=== PATIENT | female | born 1995 | race Caucasian/White ===

== ENCOUNTER 2023-08-30 15:45 | Outpatient (AMB) | payer OTHER, SELFPAY ==
--- NOTE | 2023-08-30 15:55 | MHC.PC.OV ---
Vital Signs 08/30/23 16:04 Height 5 ft 2 in Weight 120 lb 2 oz BMI 22.0 BP 108/68 Blood Pressure Location Lt brachial Position Sitting Respiration 16 Pulse 85 Pulse Source Pulse Oximeter Temp 98.4 F Temp Source Oral Pulse Oximetry (%) 98 Oxygen Delivery Method Room Air Intake Visit Reasons: Well check up Intake Note: patient here for new patient visit / CPE K 9 Police Officer Required: No Is last menstrual period known: Yes Last menstrual period: 07/30/23 Post menopausal: No Patient : No Allergies No Known Allergies Allergy (Verified 08/30/23 16:00) Medication List - Last Reconciled 09/01/23 by Nitza Urias MD alprazolam 0.5 mg PO .every 4 hours PRN sertraline 25 mg PO DAILY 90 days Tobacco use date assessed: 08/30/23 Dental Screening Dental Screen Date: 08/30/23 Did you have a dental visit in the last 12 months?: Yes Did you have a dental problem in the last 6 months where you did not have access to dental care?: No HPI HPI Comments History of Present Illness Details The patient is a 27 year old female with a past medical history of anxiety presenting to [facility] and for physical exam Her only concern today is overwhelming anxiety. She worries about everything. Stops her from doing, planning things. Causing her to be less effective. Family history of anxiety. Sister is on zoloft with good effect. She would like to try medication. She does suffer from panic attacks though infrequent. She has mild depressive symptoms mostly related to anxiety Reports dental UTD She will call furnace firer to schedule an appointment ROS CONSTITUTIONAL: Denies weight loss, fever and chills. HEENT: Denies changes in vision and hearing. RESPIRATORY: Denies SOB and cough. CV: Denies palpitations and CP GI: Denies abdominal pain, nausea, vomiting and diarrhea. : Denies dysuria and urinary frequency. MSK: Denies new myalgia and joint pain. SKIN: Denies rash and pruritus. NEUROLOGICAL: Denies headache PSYCHIATRIC: see HPI PHYSICAL EXAM: GENERAL: Alert and oriented x 3. NAD EYES: EOMI. Anicteric. HENT: Moist mucous membranes. No scleral icterus. No cervical lymphadenopathy. LUNGS: Clear to auscultation bilaterally. CARDIOVASCULAR: Regular rate and rhythm. No murmur. No JVD. ABDOMEN: Soft, non-tender +bs EXTREMITIES: No edema. Non-tender. SKIN: No rashes or lesions. Warm. NEUROLOGIC: No focal neurological deficits. CN II-XII grossly intact PSYCHIATRIC: Cooperative. 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 1. Little interest or pleasure in doing things: nearly every day 2. Feeling down, depressed, or hopeless: nearly every day 3. Trouble falling or staying asleep, or sleeping too much: more than half the days 4. Feeling tired or having little energy: nearly every day 5. Poor appetite or overeating: nearly every day 6. Feeling bad about yourself - or that you are a failure or have let yourself or your family down: nearly every day 7. Trouble concentrating on things, such as reading the newspaper or watching television: nearly every day 8. Moving or speaking so slowly that other people could have noticed. Or the opposite - being so fidgety or restless that you have been moving around a lot more than usual: more than half the days 9. Thoughts that you would be better off or of hurting yourself in some way: several days Total score: 23 Depression Screening Interpretation: Positive Depression Screening Follow-up: New Medication prescribed Depression Screening Done: Yes 36731 - PHQ-9 Billing: Yes Source: Developed by Drs. Adrien Davis, Jade De Jesus, Luke Richey and colleagues, with an educational vaishali from [employer]. Thrive Questionnaire Date Thrive assessed: 08/30/23 I am a: Patient What is your living situation today?: I have a steady place to live Within the past 12 months, did the food you bought not last and you didn't have the money to get more?: Never true Within the past 12 months, did you worry whether your food would run out before you got money to buy more?: Never true Do you have trouble paying for medicines?: No Do you have trouble getting transportation to medical appointments?: No Do you have trouble paying your heating and electricity bill?: No Do you have trouble taking care of your child, family member or friend?: No Do you have trouble with day-to-day activities such as bathing, preparing meals, shopping, managing finances, etc.?: Yes Are you currently unemployed and looking for a job?: No Are you interested in more education?: Yes Please select the resources that you would like help with: Education Currently or been in a relationship where the following occur: no concerns reported THRIVE Score: 0 AUDIT C Alcohol Use Questionnaire (AUDIT-C) 1. How often do you have a drink containing alcohol?: Monthly or less 2. How many drinks containing alcohol do you have on a typical day when you are drinking?: 1 or 2 3. How often do you have six or more drinks on one occasion?: Monthly Total Score: 3 GARETT-7 AMB Questionnaire GARETT-7 Date GARETT - 7 assessed: 08/30/23 Feeling nervous, anxious, or on edge: 3 = Nearly every day Not being able to stop or control worryin = Nearly every day Worrying too much about different things: 3 = Nearly every day Trouble relaxin = Nearly every day Being so restless that it is hard to sit still: 3 = Nearly every day Becoming easily annoyed or irritable: 3 = Nearly every day Feeling afraid as if something awful might happen: 3 = Nearly every day Total GARETT-7 score (0-4 normal; 5-9 mild; 10-14 moderate; 15-21 severe): 21 Source: Developed by Drs. Adrien Davis, Jade De Jesus, Luke Richey and colleagues, with an educational vaishali from [employer]. GARETT-7 Assessment Billing GARETT-7 Assessment Tool: GARETT-7 Assessment 70290 Physical exam (Primary Care) Vital Signs: Last Vital Signs Temp 98.4 F 08/30/23 16:04 Pulse 85 08/30/23 16:04 Resp 16 08/30/23 16:04 BP 108/68 08/30/23 16:04 Pulse Ox 98 08/30/23 16:04 Oxygen Delivery Method Room Air 08/30/23 16:04 BMI result Body Mass Index 22.0 Tobacco/Smoking Status: Tobacco use Status Tobacco use date assessed 08/30/23 08/30/23 16:03 Patient Tobacco Use Status Never used Tobacco 08/30/23 16:03 e-Cigarette/Vaping Use Never Used 08/30/23 16:03 PHQ-9: PHQ-9 Score PHQ-9: Total score 23 09/01/23 14:49 Depression Screening Interpretation: Positive Depression Screening Follow-up: New Medication prescribed Thrive Assessment: Date of Thrive Assessment Date Thrive assessed 08/30/23 08/30/23 16:16 Currently or been in a relationship where the following occur: no concerns reported Assessment and Plan Assessment & Plan (1) Physical exam: Comment: Preventive measures discussed with patient Code(s): Z00.00 - Encounter for general adult medical examination without abnormal findings (2) Anxiety: Comment: Discussed options for treatment including pharmacologic, therapy She would like to try an SSRI Side effect profile discussed. 4-6 weeks for benefit. Return then for follow up. Xanax for flying and panic attack. Sparing Code(s): F41.9 - Anxiety disorder, unspecified Orders: Orders Comprehensive Met. Panel 08/30/23 F41.9 - Anxiety disorder, unspecified, Z00.00 - Encounter for general adult medical examination without abnormal findings, Z13.0 - Encounter for screening for diseases of the blood and blood-forming organs and certain disorders involving the immune mechanism, Z13.220 - Encounter for screening for lipoid disorders, Z13.228 - Encounter for screening for other metabolic disorders Lipid Panel 08/30/23 F41.9 - Anxiety disorder, unspecified, Z00.00 - Encounter for general adult medical examination without abnormal findings, Z13.0 - Encounter for screening for diseases of the blood and blood-forming organs and certain disorders involving the immune mechanism, Z13.220 - Encounter for screening for lipoid disorders, Z13.228 - Encounter for screening for other metabolic disorders TSH reflex Free T4 08/30/23 F41.9 - Anxiety disorder, unspecified, Z00.00 - Encounter for general adult medical examination without abnormal findings, Z13.0 - Encounter for screening for diseases of the blood and blood-forming organs and certain disorders involving the immune mechanism, Z13.220 - Encounter for screening for lipoid disorders, Z13.228 - Encounter for screening for other metabolic disorders Complete Blood Count Auto Diff 08/30/23 F41.9 - Anxiety disorder, unspecified, Z00.00 - Encounter for general adult medical examination without abnormal findings, Z13.0 - Encounter for screening for diseases of the blood and blood-forming organs and certain disorders involving the immune mechanism, Z13.220 - Encounter for screening for lipoid disorders, Z13.228 - Encounter for screening for other metabolic disorders Medications: New sertraline Take 1/2 tab oral once daily for 1 week then increase to 1 tab oral daily 25 mg PO DAILY 90 tabs 0RF 90 days alprazolam 0.5 mg PO .every 4 hours PRN 20 tabs 0RF sleep Coding Level of Care Code New Pt Prev Care 18-39yr(67462 Diagnoses Physical exam Z00.00 Anxiety F41.9 Additional Codes GARETT-7 Assessment Billing - GARETT-7 Assessment Tool: GARETT-7 Assessment 42164 ([id number])
[2023-08-30 16:04] VITALS: BP 108/68; PULSE 85; RESP 16; TEMP 36.9; O2SAT 98; BMI 22.0
== END 2023-08-30 17:09 | disposition home or self-care (01) ==
PROVIDERS: PCP Internal Medicine; Visit Provider Internal Medicine
DX: Z00.00 Encounter for general adult medical examination without abnormal findings (principal); F41.9 Anxiety disorder, unspecified
CPT/HCPCS: 96127; 99385

== ENCOUNTER 2023-10-07 15:32 | Outpatient (AMB) | payer OTHER, SELFPAY ==
[2023-10-07 15:41] VITALS: BP 100/60; PULSE 63; RESP 12; O2SAT 99; BMI 22.3
--- NOTE | 2023-10-07 15:41 | A.OFFPC_ITS ---
Vital Signs 10/07/23 15:41 Height 5 ft 2 in Weight 122 lb BMI 22.3 BP 100/60 Blood Pressure Location Rt brachial Position Sitting Respiration 12 Pulse 63 Pulse Source Pulse Oximeter Pulse Oximetry (%) 99 Oxygen Delivery Method Room Air Intake Visit Reasons: f/up meds Intake Note: Patient is here for a medication follow up Cable Mechanic Required: No Accompanied by: Self / Same As Patient Allergies No Known Allergies Allergy (Verified 10/07/23 15:47) Tobacco use date assessed: 08/30/23 Dental Screening Dental Screen Date: 08/30/23 HPI HPI Comments History of Present Illness Details The patient is a 27 year old female with a past medical history of anxiety presenting for follow up She was seen ~4 weeks ago-Her only concern today is overwhelming anxiety. She worries about everything. Stops her from doing, planning things. Causing her to be less effective. Family history of anxiety. Sister is on zoloft with good effect. She would like to try medication. She does suffer from panic attacks though infrequent. She has mild depressive symptoms mostly related to anxiety She was started on 25mg of sertraline. She denies adverse side effects. She does not think the medication has decreased her anxiety significantly. ROS see HPI PHYSICAL EXAM: GENERAL: Alert and oriented x 3. NAD PSYCHIATRIC: Cooperative. 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 Adrien Davis, Jade De Jesus, Luke Richey and colleagues, with an educational vaishali from [employer] Physical exam (Primary Care) Vital Signs: Last Vital Signs Pulse 63 10/07/23 15:41 Resp 12 10/07/23 15:41 BP 100/60 10/07/23 15:41 Pulse Ox 99 10/07/23 15:41 Oxygen Delivery Method Room Air 10/07/23 15:41 BMI result Body Mass Index 22.3 Tobacco/Smoking Status: Tobacco use Status Tobacco use date assessed 08/30/23 10/07/23 15:48 Patient Tobacco Use Status Never used Tobacco 10/07/23 15:48 e-Cigarette/Vaping Use Never Used 10/07/23 15:48 Thrive Assessment: Date of Thrive Assessment Date Thrive assessed 08/30/23 10/07/23 15:48 Assessment and Plan Assessment & Plan (1) Anxiety: Code(s): F41.9 - Anxiety disorder, unspecified Plan: Tolerating SSRI zoloft 25mg daily without side effect. Not reaping any benefit however in terms of lowering anxiety. Will increase to 50mg daily. If no imrovement will trial different differently medication Medications: New sertraline 50 mg PO DAILY 90 tabs 3RF Discontinued sertraline Take 1/2 tab oral once daily for 1 week then increase to 1 tab oral daily Discontinued Reason: Doctor's Order 25 mg PO DAILY 90 days 90 tabs 0RF Coding Level of Care Code Est Pt Level 4 (53720) Diagnoses Anxiety F41.9
== END 2023-10-07 16:08 | disposition home or self-care (01) ==
PROVIDERS: PCP Internal Medicine; Visit Provider Internal Medicine
DX: F41.9 Anxiety disorder, unspecified (principal)
CPT/HCPCS: 99214

== ENCOUNTER 2023-11-11 11:11 | Outpatient (AMB) | payer OTHER, SELFPAY ==
--- NOTE | 2023-11-11 11:07 | MHC.PC.OV ---
Intake Visit Reasons: follow up meds Intake Note: Patient would like to discuss her medications with possible changes. Pattern Illustrator Required: No Accompanied by: Self / Same As Patient Allergies No Known Allergies Allergy (Verified 11/11/23 11:10) Tobacco use date assessed: 08/30/23 Dental Screening Dental Screen Date: 08/30/23 HPI HPI Comments History of Present Illness Details The patient is a 27 year old female with a past medical history of anxiety presenting for follow up Anxiety: Not feeling much different even on 50mg zoloft. Would prefer to increase to 100mg before swtiching to new SSRI -Her only concern today is overwhelming anxiety. She worries about everything. Stops her from doing, planning things. Causing her to be less effective. Family history of anxiety. Sister is on zoloft with good effect. She would like to try medication. She does suffer from panic attacks though infrequent. 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 Adrien Davis, Jade De Jesus, Luke Richey and colleagues, with an educational vaishali from [employer]. Physical exam (Primary Care) Tobacco/Smoking Status: Tobacco use Status Tobacco use date assessed 08/30/23 11/11/23 11:10 Patient Tobacco Use Status Never used Tobacco 11/11/23 11:10 e-Cigarette/Vaping Use Never Used 11/11/23 11:10 Thrive Assessment: Date of Thrive Assessment Date Thrive assessed 08/30/23 11/11/23 11:10 Telehealth Telehealth Telehealth Platform: Telephone Location of provider rendering services: practice address Location of patient: address on file Patient Identification confirmed using: Name, : Yes Telehealth method: voice only Patient verbally consented to treatment: Yes Patient verbally consented to billing insurance company: Yes Patient informed of any privacy concerns related to visit: Yes Minutes spent on Phone/Video with Pt.: 22 Assessment and Plan Assessment & Plan (1) Anxiety: Code(s): F41.9 - Anxiety disorder, unspecified Plan: Double to 100mg daily for a few weeks. If still no clinical response will trial a different SSRI Medications: Refilled alprazolam 0.5 mg PO .every 4 hours PRN 20 tabs 0RF sleep Coding Level of Care Code Tele Est Pt Level 3 (84032) Diagnoses Anxiety F41.9
== END 2023-11-11 11:44 | disposition home or self-care (01) ==
LOC: HO.HMGFM 11:11
PROVIDERS: PCP Internal Medicine; Visit Provider Internal Medicine
DX: F41.9 Anxiety disorder, unspecified (principal)
CPT/HCPCS: 99213

== ENCOUNTER 2024-07-19 11:01 | Outpatient (AMB) | payer OTHER, SELFPAY ==
--- NOTE | 2024-07-19 11:25 | MHC.PC.OV ---
Vital Signs 07/19/24 11:27 Height 5 ft 2 in Weight 132 lb BMI 24.1 BP 100/64 Blood Pressure Location Rt brachial Position Sitting Respiration 12 Pulse 88 Pulse Source Pulse Oximeter Pulse Oximetry (%) 98 Oxygen Delivery Method Room Air Intake Visit Reasons: lump on inner arm Intake Note: Lump on inner right arm Agate Setter Required: No Allergies Penicillins Allergy (Unknown, Verified 07/19/24 11:26) Unknown Medication List - Last Reconciled 07/19/24 by Leena Babb PA-C alprazolam 0.5 mg PO .every 4 hours PRN sertraline 100 mg PO DAILY Tobacco use date assessed: 07/19/24 Dental Screening Dental Screen Date: 07/19/24 Did you have a dental visit in the last 12 months?: No Did you have a dental problem in the last 6 months where you did not have access to dental care?: No Was dental information given to patient?: Patient has dentist HPI lump on inner arm HPI Details Patient is a 28-year-old female who presents today with complaints of a lump on her right arm. She states it is right by the elbow on the inner aspect. She noticed it about 3 days ago and when she touches it at times in rubs it it is uncomfortable. No overlying redness. There was no trauma. No numbness, tingling or weakness. No fevers or chills. She can move her elbow without difficulty.. Psych: She is currently on sertraline 100 mg daily and alprazolam as needed. No SI/HI. PHQ-9 reviewed today and she is following with her PCP. 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 1. Little interest or pleasure in doing things: more than half the days 2. Feeling down, depressed, or hopeless: nearly every day 3. Trouble falling or staying asleep, or sleeping too much: more than half the days 4. Feeling tired or having little energy: nearly every day 5. Poor appetite or overeating: more than half the days 6. Feeling bad about yourself - or that you are a failure or have let yourself or your family down: more than half the days 7. Trouble concentrating on things, such as reading the newspaper or watching television: nearly every day 8. Moving or speaking so slowly that other people could have noticed. Or the opposite - being so fidgety or restless that you have been moving around a lot more than usual: more than half the days 9. Thoughts that you would be better off or of hurting yourself in some way: several days Total score: 20 Depression Screening Interpretation: Positive Depression Screening Follow-up: Existing condition and Follow-up Visit Requested Depression Screening Done: Yes 76201 - PHQ-9 Billing: Yes Source: Developed by Drs. Adrien Davis, Jade De Jesus, Luke Richey and colleagues, with an educational vaishali from [employer]. Thrive Questionnaire Date Thrive assessed: 07/19/24 I am a: Patient What is your living situation today?: I have a steady place to live Within the past 12 months, did the food you bought not last and you didn't have the money to get more?: Never true Within the past 12 months, did you worry whether your food would run out before you got money to buy more?: Never true Do you have trouble paying for medicines?: No Do you have trouble getting transportation to medical appointments?: No Do you have trouble paying your heating and electricity bill?: No Do you have trouble taking care of your child, family member or friend?: No Do you have trouble with day-to-day activities such as bathing, preparing meals, shopping, managing finances, etc.?: I choose not to answer this question Are you currently unemployed and looking for a job?: No Are you interested in more education?: I choose not to answer this question Please select the resources that you would like help with: None Currently or been in a relationship where the following occur: I choose not to answer THRIVE Score: 0 AUDIT C Alcohol Use Questionnaire (AUDIT-C) 1. How often do you have a drink containing alcohol?: Monthly or less 2. How many drinks containing alcohol do you have on a typical day when you are drinking?: 1 or 2 3. How often do you have six or more drinks on one occasion?: Never Total Score: 1 GARETT-7 AMB Questionnaire GARETT-7 Date GARETT - 7 assessed: 07/19/24 Feeling nervous, anxious, or on edge: 3 = Nearly every day Not being able to stop or control worryin = Nearly every day Worrying too much about different things: 3 = Nearly every day Trouble relaxin = Nearly every day Being so restless that it is hard to sit still: 3 = Nearly every day Becoming easily annoyed or irritable: 2 = More than half the days Feeling afraid as if something awful might happen: 3 = Nearly every day Total GARETT-7 score (0-4 normal; 5-9 mild; 10-14 moderate; 15-21 severe): 20 Source: Developed by Drs. Adrien Davis, Jade De Jesus, Luke Richey and colleagues, with an educational vaishali from [employer]. GARETT-7 Assessment Billing GARETT-7 Assessment Tool: GARETT-7 Assessment 30484 Physical exam (Primary Care) Vital Signs: Last Vital Signs Pulse 88 07/19/24 11:27 Resp 12 07/19/24 11:27 BP 100/64 07/19/24 11:27 Pulse Ox 98 07/19/24 11:27 Oxygen Delivery Method Room Air 07/19/24 11:27 BMI result Body Mass Index 24.1 Tobacco/Smoking Status: Tobacco use Status Tobacco use date assessed 07/19/24 07/19/24 11:30 Patient Tobacco Use Status Never used Tobacco 07/19/24 11:30 e-Cigarette/Vaping Use Never Used 07/19/24 11:30 PHQ-9: PHQ-9 Score PHQ-9: Total score 20 07/19/24 11:44 Depression Screening Interpretation: Positive Depression Screening Follow-up: Existing condition and Follow-up Visit Requested Thrive Assessment: Date of Thrive Assessment Date Thrive assessed 07/19/24 07/19/24 11:30 Currently or been in a relationship where the following occur: I choose not to answer Const Orientation/consciousness: patient oriented x3 HENMT Ears: hearing grossly normal bilaterally Neck Thyroid: Thyroid normal Lymphatic: no lymphadenopathy noted Resp Auscultation: clear to auscultation bilaterally Cardio Rate: regular rate Rhythm: regular rhythm Heart sounds: S1 normal heart sound present and S2 normal heart sound present Skin General skin exam: no rashes or lesions noted Neuro General: patient oriented x3, gait normal and no focal motor deficits Extrem Other: There is a firm, rubbery, mobile 1 cm x 1 cm subcutaneous lump noted on the anterior right forearm just distal from the medial epicondyle Coding Level of Care Code Est Pt Level 4 (18945) Complex EM visit Add On G2211 Diagnoses Lump of skin of right upper extremity R22.31 Anxiety F41.9 Additional Codes GARETT-7 Assessment Billing - GARETT-7 Assessment Tool: GARETT-7 Assessment 72080 ([id number]) PHQ-9 - 94719 - PHQ-9 Billing: Yes ([id number]) Assessment & Plan Assessment & Plan (1) Lump of skin of right upper extremity: Code(s): R22.31 - Localized swelling, mass and lump, right upper limb Category: Medical Plan: Discussed with patient that it does feel somewhat consistent with a lipoma. Ultrasound ordered. She would like this removed. Referral to General surgery. (2) Anxiety: Code(s): F41.9 - Anxiety disorder, unspecified Category: Medical Plan: Currently being managed by PCP. She is stable. Advised to complete labs and return for follow up with primary care doctor. Orders: Orders US Extremity Nonvas Limited RT Today R22.31 - Localized swelling, mass and lump, right upper limb Referrals General Surgery Referral R22.31 - Localized swelling, mass and lump, right upper limb
[2024-07-19 11:27] VITALS: BP 100/64; PULSE 88; RESP 12; O2SAT 98; BMI 24.1
== END 2024-07-19 11:49 | disposition home or self-care (01) ==
LOC: HO.HMCFM 11:01
PROVIDERS: PCP Internal Medicine; Visit Provider Physician Assistant
DX: R22.31 Localized swelling, mass and lump, right upper limb (principal); F41.9 Anxiety disorder, unspecified

== ENCOUNTER → 2024-07-19 11:01 | Outpatient (BNVA) | payer OTHER, SELFPAY | PROVIDERS: PCP Internal Medicine; Visit Provider Physician Assistant | DX: R22.31 Localized swelling, mass and lump, right upper limb (principal); F41.9 Anxiety disorder, unspecified | CPT/HCPCS: 96127; 99212 ==